=== PATIENT | female | born 1960 | race Caucasian/White ===

== ENCOUNTER → 2025-02-07 07:49 | Outpatient (REF) | payer OTHER, SELFPAY | LOC: RAD 07:49 | PROVIDERS: ATTENDING PHYSICIAN Nurse Practitioner Adult Health; FAMILY PHYSICIAN Nurse Practitioner | DX: M85.89 Other specified disorders of bone density and structure, multiple sites (principal) | CPT/HCPCS: 77080 ==

== ENCOUNTER 2025-04-11 13:15 | Observation (INO) | payer OTHER, SELFPAY ==
[2025-04-11] VITALS (11 sets, daily range): BP systolic 120–146; BP diastolic 73–98
--- NOTE | 2025-04-11 11:01 | CON.NEURO ---
Addendum entered and electronically signed by Markel Gonzales MD 04/11/25 14:39:
Studies reviewed.
I have personally examined the patient. I reviewed and agree with the INTERNET SALES MANAGER's Note.
My addenda:
Awake, alert, interactive. No acute distress.
Speech intact.
Follows 2-step requests w/o difficulty. No tremor.
Extra-ocular movements grossly intact.
Facial movements full and symmetric. Hearing intact to normal conversational volume.
Normal UE movements bilaterally.
Neck: full ROM.
Chest: no dyspnea
Heart: no JVD
Ext: (-) Clubbing, (-) Cyanosis, (-) Edema
IMPRESSIONS/RECOMMENDATIONS:
Abrupt onset of ataxia
Unclear etiology at this time. There is the possibility of a posterior acute ischemic stroke producing symptoms. Differential diagnosis includes toxic metabolic abnormality
Check alcohol level
Check urine drug screen
Provide thiamine
Check MRI of brain if the above testing is unremarkable
Provide patient with aspirin 81 mg until clarity regarding absence or presence of vascular abnormalities
D/W patient
All questions answered.
Will continue to follow pending results.
Original Note:
Documented by User: Mikayla Bhatti NP 04/11/25 14:10
Neuro Assessment/Plan
Assessment
Patient is a 65-year-old female with a past medical history of hypertension, history of alcohol abuse, chronic pain syndrome, anxiety and depression who presents to [facility] on 04/11/2025 for evaluation of dysarthria and ataxia.
Head CT: No acute intracranial abnormality. ASPECT score: 10
Head and neck CTA:
1. Negative for major branch vessel occlusion, flow-limiting stenosis, dissection, or aneurysm formation.
2. Chronic left-sided paranasal sinusitis.
Brain MRI: pending
Labs: Hgb A1C 4.9, LDL 90, Vitamin B12 591
Plan
Impression: abrupt onset of ataxia and dysarthria with resolving symptoms likely due to TIA
-check brain MRI without contrast to evaluate for CVA
-check blood work to look for metabolic disturbances
-start thiamine
-start aspirin 81 mg daily
-LDL 90 with goal <70 start atorvastatin 40 mg nightly
-stroke education material to be provided
-neurochecks and NIHSS per unit guidelines
All questions encouraged and answered, plan of care discussed with Dr. Gonzales, nurse and patient
Consultation
Order
Date of Consultation: 04/11/25
Requesting Provider: hospitalist/Dr. Huang
Reason for Consult: stroke alert
Subjective/Objective
Subjective Data
Date of Service: April 11, 2025
Patient is a 65-year-old female with a past medical history of hypertension, history of alcohol abuse, chronic pain syndrome, anxiety and depression who presents to [facility] on 04/11/2025 for evaluation of dysarthria and ataxia. Patient reports that
she was in her normal state of health before bed last night at 2130. She says she woke up this morning at about 5:30 AM and noted that she felt very clumsy and 'drunk.' She says that she felt unsteady on her feet and was dropping things, etc. She
says that she noticed that she was having some trouble getting words out. Went to her PCP first and was noted to have ataxia to RUJuan and FRANCISCA and referred her to the ER. She says that symptoms seem to be improving generally but have not resolved�her
main complaint presently is that she feels very unsteady. She denies having headache, dizziness or neck pain. She denies any weakness or numbness/tingling in the legs. She denies any change in her vision. Denies issues with chewing or swallowing.
Denies issues with bowel/bladder. She denies any other acute complaints. She denies having had similar symptoms in the past. She is not on any blood thinners. On arrival to ED she was a stroke alert, NIHSS 1 for mild aphasia. Currently NIHSS 0.
Head CT showed no acute intracranial abnormality. Head and neck CTA showed no major branch vessel occlusion, flow-limiting stenosis, dissection, or aneurysm formation. She was not a TNK candidate given low NIH score and greater hurley 4.5 hours from
onset of symptoms.
Objective Data
Vital Signs
Temp Pulse Resp BP Pulse Ox
98.7 F 82 16 140/84 97
04/11/25 10:30 04/11/25 10:30 04/11/25 10:30 04/11/25 10:30 04/11/25 10:30
Patient Allergies
No Known Allergies Allergy (Verified 04/11/25 10:34)
CVA Assessment
Onset of Stroke Symptoms
Onset of symptoms known: No
Date of onset of symptoms: 04/11/25
Time of onset of symptoms: 05:30
Time pt last seen normal is known: No
Date last time pt seen normal: 04/10/25
Time last time pt seen normal: 21:30
NIH Stroke Score
Level of Consciousness: 0 - Alert
LOC Questions: 0-Answers both correctly
LOC Commands: 0-Performs both correctly
Best Horizontal Gaze: 0-Normal
Visual Peacock: 0=Normal, no visual loss
Facial Palsy: 0=Normal, symmetrical
Motor - Right Arm: 0=No drift 10 seconds
Motor - Left Arm: 0=No drift 10 seconds
Motor - Right Le-No drift 5 seconds
Motor - Left Le-No drift 5 seconds
Limb Ataxia: 0-Absent
Sensation: 0-Normal
Best Language: 0-No aphasia
Dysarthria: 0-Normal
Extinction and Inattention: 0-No abnormality
NIH Total Score:: 0
Tenecteplase Contraindications
Inclusion and Exclusion criteria reviewed: Yes
IAT Contraindications: >6 hrs from onset/last seen normal, NIHSS < 6 and Imaging doesn't show large vessel occlusion as cause of stroke
Modified Musselshell Score (MRS)
-
Modified Musselshell Scale (mRS): No symptoms
Score: 0
Medications
-
Home Medications
�Medication �Instructions �Recorded
amlodipine 5 mg tablet (Norvasc) 5 mg PO QPM 08/09/22
buprenorphine HCl 450 mcg buccal 450 mcg buccal Q12H 08/09/22
film (Belbuca)
fluoxetine 40 mg capsule (Prozac) 80 mg PO DAILY 08/09/22
hydrocodone 5 mg-acetaminophen 325 1 tab PO Q6H PRN pain #7 tabs 08/09/22
mg tablet
levofloxacin 500 mg tablet 500 mg PO DAILY 7 days #7 tabs 08/09/22
metronidazole 500 mg tablet 500 mg PO TID #21 tabs 08/09/22
ondansetron 4 mg disintegrating 4 mg PO Q8H PRN nausea/vomiting 4 08/09/22
tablet days #10 tabs
Past History
Past History
ED Past Medical History: HTN, Psychiatric (Depression) and Other (Chronic neck and back pain, one episode diverticulitis in the past)
ED Past Surgical History: Gynecological (, D&C), Orthopedic (Bilateral shoulder surgeries.) and Other (Epidural steroid injections to cervical region)
Family/Social History
Tobacco: Former smoker
Alcohol: None
Drug: None
Personal:
Living: with family
Family History: Hypertension

Documented by User: Markel Gonzales MD 04/11/25 14:33
CVA Assessment
NIH Stroke Score
NIH Total Score:: 0
Modified Musselshell Score (MRS)
-
Score: 0
[2025-04-11 11:02] LABS: Hematocrit 34.6 % (37.0-47.0); Hemoglobin 11.8 g/dL (12.0-16.0); Mean Corp Hgb Conc. 34.1 g/dL (33.0-37.0); Mean Corpuscular Volume 83.4 fL (81.0-99.0); Nucleated Red Blood Cells % 0 %; Platelet Count 306 10^3/uL (130-400); Red Cell Dist. Width 13.1 % (11.5-14.5)
--- NOTE | 2025-04-11 11:13 | ED.CVA ---
History of Present Illness
General
Chief Complaint: CVA/TIA Symptoms
Source: patient and other (Friend)
Exam Limitations: none
Time Seen by Provider: 04/11/25 10:44
Nursing documentation reviewed up to this point in time: agreed with
Onset of Stroke Symptoms
Onset of symptoms known: Yes
Date of onset of symptoms: 04/11/25
History of Present Illness
History of Present Illness:
65-year-old female with a past medical history of hypertension who presents to the emergency department for evaluation of speech issues and clumsiness. Patient reports that she was in her normal state of health before bed last night. She says she
woke up this morning at about 5:30 AM and noted that she felt very clumsy. She says that she felt unsteady on her feet and was dropping things, etc. She says that she noticed that she was having some trouble getting words out. Called her primary
doctor who referred her to the ER. She says that symptoms seem to be improving generally but have not resolved�her main complaint presently is that she feels very unsteady. She denies having headache or neck pain. She denies any weakness or
numbness in the legs. She denies any change in her vision. She denies any other acute complaints. She denies having had similar symptoms in the past. She is not on any blood thinners.
Past History
Past History
ED Past Medical History: HTN, Psychiatric (Depression) and Other (Chronic neck and back pain, one episode diverticulitis in the past)
ED Past Surgical History: Gynecological (, D&C), Orthopedic (Bilateral shoulder surgeries.) and Other (Epidural steroid injections to cervical region)
Social History
Tobacco: Former smoker
Alcohol: None
Drug: None
Personal:
Living: with family
Family History
Family History: Hypertension
Review of Systems
Review of Systems
All Other Systems: ROS reviewed and negative except as documented in HPI and ROS
Constitutional: Denies fever
Respiratory: Denies trouble breathing
Cardiac: Denies chest pain or palpitations
ABD/GI: Denies abdominal pain, nausea or vomiting
: Denies flank pain
Musculoskeletal: Denies neck pain or back pain
Neurological: Reports dizzy and other (Clumsiness, speech issues); Denies headache, weakness or numbness
Phy Exam
Physical Exam
Physical Exam:
General: Awake, alert, oriented x3; no acute distress
Head: Normocephalic, atraumatic
Eyes: Conjunctiva normal, EOMI, pupils equal round reactive to light bilaterally
Throat: Airway intact, handling secretions
Neck: Trachea midline, supple without meningismus
Lungs: Clear to auscultation bilaterally, no wheezing, rales, rhonchi
Heart: Regular rate and rhythm, no murmurs, gallops, or rubs
Neuro: Cranial nerves intact 2 through 12, no dysarthria noted, perhaps very mild expressive aphasia (no loss of fluency but she does have to pause from time to time to find words), no limb ataxia on [id number] but she does have ataxia on
ambulation with abnormal Romberg and cannot tolerate even 1 step heel-to-toe walk; motor and sensory intact proximally distally in the upper and lower extremities
Extremities: No edema in extremities, equal pulses in all extremities
Scores
NIH Stroke Score
Level of Consciousness: 0 - Alert
LOC Questions: 0-Answers both correctly
LOC Commands: 0-Performs both correctly
Best Horizontal Gaze: 0-Normal
Visual Peacock: 0=Normal, no visual loss
Facial Palsy: 0=Normal, symmetrical
Motor - Right Arm: 0=No drift 10 seconds
Motor - Left Arm: 0=No drift 10 seconds
Motor - Right Le-No drift 5 seconds
Motor - Left Le-No drift 5 seconds
Limb Ataxia: 0-Absent
Sensation: 0-Normal
Best Language: 1-Mild aphasia
Dysarthria: 0-Normal
Extinction and Inattention: 0-No abnormality
NIH Total Score:: 1
Thrombolytic Contraindication
Inclusion and Exclusion criteria reviewed: Yes
Reasons for NON-Tx with Thrombolytics ABSOLUTE Exclusions: Greater than 4.5 hrs from onset of sxs
Heart Failure Risk
Heart Failure Risk Score: Not Applicable
Heart Score for Chest Pain Patients
STEMI patient?: Not applicable
Withdrawal Assessment of Alcohol
Withdrawal Assessment Completed?: Not applicable
Course
Orders/Labs/Results
Orders:
Orders
04/11/25 10:53
Electrocardiogram (*1) Stat
Reason for Study: Other
Other Reason for Exam: neuro symptoms
CT BRAIN PERF STROKE ALERT Urgent
Comment:
Reason For Exam: ataxia, expressive aphasia
CT HEAD STROKE ALERT W/o Cont Urgent
Comment:
Reason For Exam: ataxia, expressive aphasia
CT HEAD/NECK ANG STROKE ALERT Urgent
Comment:
Reason For Exam: ataxia, expressive aphasia
NEUROLOGY CONSULT Urgent
Consulting Provider: Markel Gonzales
Was physician already notified: Yes
Bedside Glucose- Treatment ONCE
Cardiac Monitoring- Treatment ONCE
EKG- Treatment ONCE
IV Insert/Care/Rem.- Treatment PRN
Pulse Ox/cont/shift [RESP] Stat
Quantity: 1
04/11/25 10:58
Alcohol Urgent
Cardiovascular Evaluation Urgent
Complete Blood Count/With Diff Urgent
Comprehensive Metabolic Panel Urgent
Free T4 Urgent
Comment: ADD ON
Glycohemoglobin (HgbA1c) Urgent
TSH Urgent
Comment: ADD ON
Vitamin B12 Urgent
Comment: ADD ON
04/11/25 11:07
Add On- LAB Routine
Tests Added?: lipid panel, hgb A1C, TSH, free t4, B12
04/11/25 11:36
Drug Screen, Urine [Urine Drug Abuse Screen] Urgent
Date Specimen was Collected: 04/11/25
Time Specimen was Collected: 11:22
Fentanyl, Urine Urgent
04/11/25 11:56
MR Brain Without Contrast Routine
Comment:
Reason For Exam: Ataxia,? Stroke
Recent pill cam endoscopy?: No
Lorazepam [Ativan] 1 mg PO ONCE ONE
04/11/25 12:27
Aspirin 325 mg PO NOW STA
04/11/25 12:59
Admit/Transfer Patient As Directed
Co-Sign Provider:
Level of Care: Observation services
Assign to:: Telemetry
Physician / Group: luis alberto hunter
Diagnosis: speech diff / ataxia concern tia/cva
Reason for Telemetry: CVA/TIA
Date to Stop Telemetry: 04/14/25
Time to Stop Telemetry: 11:00
Code Status As Directed
Resuscitation Status: Full Code
04/11/25 13:01
PRN Pain Medication Management As Directed
May give lesser potent ordered pain med per pt: Yes
preference::
Protocol:: Medication orders for pain may be administered in a
manner that supports deferring to patient preference
when the pt is:
- Requesting an ordered lesser potent pain medication.
Least to most potent pain medications are defined
as: acetaminophen < NSAID < tramadol < opioids
(morphine, oxycodone, hydromorphone).
- Requesting a lesser dose of the same medication IF
ORDERED.
- Requesting a less intrusive route of administration
if both routes are prescribed by the provider (PO <
IV).
04/14/25 11:00
DC Protocol for Telemetry ONCE
Abnormal Lab Results
04/11/25 04/11/25
10:58 11:36
WBC 11.1 H 10^3/uL
(4.8-10.8)
RBC 4.15 L 10^6/uL
(4.20-5.40)
Hgb 11.8 L g/dL
(12.0-16.0)
Hct 34.6 L %
(37.0-47.0)
Abs Immat Gran (auto) 0.1 H 10^3/uL
(0-0.05)
Absolute Neuts (auto) 8.1 H 10^3/uL
(1.4-6.5)
Absolute Monos (auto) 0.7 H 10^3/uL
(0.1-0.6)
Lymphocytes % 17.2 L %
(20.5-51.1)
Ur Tricyclics Screen Positive H
(Negative)
U Benzodiazepines Scrn Positive H
(Negative)
U Marijuana (THC) Screen Positive H
(Negative)
04/11/25 10:58
04/11/25 10:58
Vital Signs
Initial and Last Documented VS:
Initial Vital Signs
Temp Pulse Resp BP Pulse Ox
37.1 C 82 16 140/84 97
04/11/25 10:30 04/11/25 10:30 04/11/25 10:30 04/11/25 10:30 04/11/25 10:30
Last Documented Vital Signs
Temp Pulse Resp BP Pulse Ox
37.1 C 73 7 123/73 97
04/11/25 10:30 04/11/25 15:45 04/11/25 15:45 04/11/25 15:00 04/11/25 14:15
MDM/Problems Addressed
Differential Diagnosis Includes:
CVA, TIA, panic attack/anxiety, polypharmacy/drug or alcohol use
MDM/Problems Addressed:
65-year-old female presents with clumsiness and speech difficulties that started this morning when she woke up at 5:30 AM. She was in her normal state of health last night. She says symptoms are improving generally but have not resolved. Vitals
and exam as above. Stroke alert activated after my initial assessment. NIH stroke scale 1. Discussed with neurology for assessment. Will send for a CT head, CT perfusion, CTA head and neck. Usual labs sent off and will check EKG. Monitor very
closely reassess after the above
Initial CT called back by radiology: Negative for any acute abnormality. Neurology assessing.
CTA no LVO or other acute abnormalities. Labs reviewed: CBC shows marginal anemia, marginal leukocytosis of unclear acute clinical significance. Chemistry no clinically significant abnormalities. Discussed with neurology will plan for likely MRI
to rule out stroke. Will treat with aspirin for now. Discussed with hospitalist for admission.
*Radiology
Radiology exam reviewed: radiology read reviewed
*Pulse Oximetry
SaO2: 97
Oxygen Mode of Delivery: Room air
Patient hypoxic: no (97%)
*Critical Care Note
Total Time (30-74mins, 75-104mins- exclusive of procedures): Not Applicable
Data Reviewed
Review of Other/Old Records Reveals: Records
Source: patient, records and other (Friend)
Patient Management
Discussion with other providers: Hospitalist (Discussed with hospitalist), PCP (Discussed with PCP who called ahead), Associate Dentist (Discussed with neurology) and Radiologist (Discussed with radiology)
Escalation/DeEscalation of care consider admission/obs:
Admission indicated
ED Attending Note
-
Portions of this chart may have been created with voice recognition software.� Occasional wrong word or��sound alike� substitutions may have occurred due to the inherent limitations of voice recognition software.
Discharge Plan
Departure
Patient Disposition: Admit
Date of Disposition: 04/11/25
Time of Disposition: 12:07
Admit to doctor: Dylan
Presentation/result/management discussed w/ accepting MD/DO: Hospitalist
Discharge Problem:
Acute CVA (cerebrovascular accident)
Interventions
Interventions:
*General Assessment Last Done: 04/11/25 11:44
ED- Pulmonary Assessment Last Done: 04/11/25 11:44
ED- Neurological Assessment Last Done: 04/11/25 11:44
ED- Cardiac Assessment Last Done: 04/11/25 11:44
ED Swallowing Screen Last Done: 04/11/25 11:44
[2025-04-11 11:32] LABS: ALT (SGPT) 14 U/L (0-35); AST (SGOT) 22 U/L (14-36); Albumin 4.1 g/dl (3.5-5.0); Alkaline Phosphatase 92 U/L (38-126); Blood Urea Nitrogen 16 mg/dl (7-17); Calcium 9.2 mg/dl (8.4-10.2); Carbon Dioxide 23 mmol/L (22-30); Chloride 107 mmol/L (98-107); Glucose 92 mg/dl (70-99); HDL Cholesterol 63 mg/dl; LDL Cholesterol, Calculated 90 mg/dl; Potassium 3.6 mmol/L (3.5-5.1); Sodium 138 mmol/L (135-145); Total Protein 6.9 g/dl (6.3-8.2); Very Low Density Lipoprotein 17 mg/dl (0-30); eGFR > 60.00
[2025-04-11 12:03] LABS: TSH 2.70 uIU/ml (0.47-4.68)
[2025-04-11 12:22] LABS: Vitamin B12 591 pg/ml (239-931)
--- NOTE | 2025-04-11 12:32 | W.PN.UPDATE ---
Update Note
Progress Note Update
This note serves as an addendum to the H&P by concrete sculptor MARISSA�
Maria Elena Bethany
HPI
65F R hand dominant HX HTN, Chronic neck and back pain, Depression, marijuana gummy HS for insomnia seen at ER:
- evaluation of speech issues and clumsiness.
- reports that she was in her normal state of health before bed last night.
- she woke up this morning at about 5:30 AM and noted that she felt very clumsy.
- she felt unsteady on her feet and was dropping things, etc.
- she noticed that she was having some trouble getting words out.
Called her primary doctor who referred her to the ER.
- symptoms seem to be improving generally but have not resolved
- complaint presently is that she feels very unsteady.
ROS:
She denies having headache or neck pain. She denies any weakness or numbness in the legs. She denies any change in her vision. She denies any other acute complaints. She denies having had similar symptoms in the past.
She is not on any blood thinners.
Vital Signs
Temp Pulse Resp BP Pulse Ox
98.7 F 92 11 144/87 97
04/11/25 10:30 04/11/25 11:37 04/11/25 11:37 04/11/25 11:25 04/11/25 11:37
PE
Gen:No toxic
HEENT: symmetric face and expression, nl speech , name 5fruits without difficulty
Neck: supple
Lungs: CTA
Cor: RRR
Abdomen:�Benign exam
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
MS:no edema
Psych:nl mooed
Relevant Data
Abnormal Lab Results
04/11/25 04/11/25
10:58 11:36
WBC 11.1 H
RBC 4.15 L
Hgb 11.8 L
Hct 34.6 L
Abs Immat Gran (auto) 0.1 H
Absolute Neuts (auto) 8.1 H
Absolute Monos (auto) 0.7 H
Lymphocytes % 17.2 L
Ur Tricyclics Screen Positive H
U Benzodiazepines Scrn Positive H
U Marijuana (THC) Screen Positive H
CT HEAD/NECK ANG STROKE ALERT
1. Negative for major branch vessel occlusion, flow-limiting stenosis, dissection, or aneurysm formation.
2. Chronic left-sided paranasal sinusitis.
CT HEAD STROKE ALERT W/o Cont
- No acute intracranial abnormality.
CT BRAIN PERF STROKE ALERT;
ASSESSMENT & PLAN
Pending Rx reconciliation
Woke yo with abn speech, clumsy and unsteady - overall improved but still unsteady
DDX: r/o TIA/CVA vs overuse of prescription RO[employer]LL[employer]OT MIX Meds
Sxs improving but not resolved.
NEG HCT/CTA nothing acute
R hand dominant
Off note: last night she took Gabapentin 600mh instead of 300mg
- ASA
- Brain MRI
- PT/OT
- Neuro consulted
POS THC in UDS
- reports Marijuana gummy HS to sleep
Bn HTN
- stable
- on RODEO RIDER Amlodipine 10 mg daily
Depression
Anxiety
- stable
- RODEO RIDER Fluoxetine 40mg daily
- RODEO RIDER Lorazepam 0.5mg daily
Chr neck and LBP
- on RODEO RIDER Cyclobenzaprine PRN, Gabapentin 300-600mg HS
- Percocet PRN BID
DVT Px: SCD
Full code
OBS TLM
--- NOTE | 2025-04-11 12:36 | HPS.HSE ---
Family Physician
-
Family Physician: SILVIA Magana
Chief Complaint
-
Ataxia, slurred speech
History of Present Illness
65-year-old female who reportedly went to bed last night and felt fine however upon wakening this morning at 530 she reports feeling unsteady on her feet and dropping things. She was also noted to have trouble getting out her words. She currently
only complains of feeling unsteady with walking her speech has currently resolved. She reports symptoms had lasted about 3 to 4 hours. She reports using marijuana gummy every night to sleep she denies headache, blurred vision, sore throat, fever,
chills, chest pain, palpitations, cough, shortness of breath, abdominal pain, nausea, vomiting, diarrhea, urinary symptoms. She has past medical history of hypertension, former smoker, depression/anxiety, chronic neck and back pain on oral opiates,
diverticulitis
Medical History
Past Medical History
Past Medical History: Reports Other
Additional Past Medical History:
HYpertension
former smoker
depression/anxiety
chronic neck and back pain on chronic oral opiates
diverticulitis
Neuropathy
Past Surgical History: Reports Other
Additional Past Surgical History:
section
D&C
Bilateral shoulder surgery
Epidural injections to cervical spine
Social History
Tobacco: Former Smoker (Quit 40 years ago)
Alcohol: None
Drug: None
Personal: Single
Living: Alone
Employment: Employed
Family History
Family History: Other (Mother history CA, HTN age 84, father history of dementia, HTN, DM 2 )
Allergies / Home Medications
Allergies reflects when Allergies were last updated in [facility].
Home Medications with original date entered in [facility]
Allergy/Medication List:
Allergies
Allergy/AdvReac Type Severity Reaction Status Date / Time
No Known Allergies Allergy Verified 04/11/25 10:34
Home Medications
buprenorphine HCl 450 mcg buccal film (Belbuca) 450 mcg buccal Q12H 08/09/22
amlodipine 10 mg tablet (Norvasc) 10 mg PO QPM 04/11/25
cyanocobalamin (vitamin B-12) 1,000 mcg tablet 1,000 mcg PO DAILY 04/11/25
fluoxetine 40 mg capsule 80 mg PO QPM 04/11/25
gabapentin 300 mg capsule 600 mg PO HS 04/11/25
ibuprofen 400 mg tablet 400 mg PO Q6HPRN PRN mild pain 04/11/25
vitamins A,C,V-cros-upvdem 2,148 mcg-113 mg-45 mg-17.4 mg tablet (PreserVision AREDS) 2 tab PO QPM 04/11/25
Review of Systems
-
History Source: Patient and Family (Friend Alda at bedside)
A 12 point ROS was completed and negative except as noted: Yes
Constitutional: Denies Fever or Chills
EENT: Denies Sore Throat or Runny Nose
Respiratory: Denies Cough or Trouble Breathing
Cardiac: Denies Chest Pain, Diaphoresis, Palpitations or Syncope
Abdomen/GI: Denies Abdominal Pain, Nausea, Vomiting, Diarrhea, Constipated, Bloody Stools or Black Stools
: Denies Dysuria, Frequency, Flank Pain, Incontinence, Difficulty Voiding or Urgency
Musculoskeletal: Denies Joint Pain or Edema
Skin: Denies Itching or Rash
Neurological: Reports Dizzy and Other (Reported ataxia with walking); Denies Headache, Weakness or Numbness
Endocrine: Reports No Symptoms
Hematologic/Lymphatic: Reports No Symptoms
Psych: Reports Calm
Physical Exam
Vital Signs
Vital Signs
Temp Pulse Resp BP Pulse Ox
98.7 F 92 11 144/87 97
04/11/25 10:30 04/11/25 11:37 04/11/25 11:37 04/11/25 11:25 04/11/25 11:37
Physical Exam
General: Comfortable and Conversant; No Fever, Chills or Sweats
HEENT: NormoCephalic, Anicteric, Moist mucous membranes, PERRLA, Joslin Conjunctivae and No Ptosis
Respiratory: Clear; No Wheezes, Rales or Rhonchi
Cardiac: S1/S2 and Regular Rhythm; No Murmur, Rub, Gallop or Peripheral Edema
Breast: Deferred by me
GI: Soft, Non Tender, Non Distended, Normal Bowel Sounds and No Hepatosplenomegaly
Rectal: Deferred by Provider
Genito-urinary: Deferred by me
Musculoskeletal: No Clubbing, No Cyanosis and No Edema
Skin: Warm and Dry; No Rash or Jaundice
Neuro: AO x 3, No Motor Deficits, Nonfocal/grossly intact, Cranial Nerves Intact and No Sensory Deficits; No Slurred Speech, Facial Droop, Tremors or Sedated
Psych: Calm
Laboratory Results
-
04/11/25 10:58
04/11/25 10:58
Laboratory Results
Total Bilirubin 0.5 mg/dl (0.2-1.3) 04/11/25 10:58
AST 22 U/L (14-36) 04/11/25 10:58
ALT 14 U/L (0-35) 04/11/25 10:58
Alkaline Phosphatase 92 U/L (38-126) 04/11/25 10:58
Data Reviewed
-
CT Scan: Report Reviewed by me
Lab Data: Labs Reviewed by me
Impression/Plan
-
Impression/plan:
Observation telemetry
#Slurred speech with ataxia concern for CVA/TIA
UDS positive benzos, marijuana, tricyclic's
- Consult neurology
- Aspirin 325 mg now then 81 mg daily
- MRI brain in a.m.
- Check lipid profile, HgbA1c
- PT/OT/speech
Head and neck CTA:
1. No acute intracranial abnormality
2. Negative for major branch vessel occlusion, stenosis, dissection or aneurysm formation, chronic left-sided paranasal sinusitis
EKG: NSR 79 bpm, QTc 497 MS no significant change from June 2017
#Insomnia
Patient uses marijuana gummy at night
#HYpertension
BP 144/87
- Continue amlodipine 5 mg every afternoon
#Former smoker
Quit 40 years ago
#Depression
Continue Prozac 40 mg daily
#chronic neck and back pain with chronic neuropathy on chronic pain meds
History of cervical injections
- Continue Belbuca twice daily
#Diverticulitis in past
Glaucoma
Continue PreserVision
DVT prophylaxis
SCDs
Full code
[2025-04-11] MEDS: ASPIRIN 325 MG PO (13:10)
[2025-04-11 13:14] LABS: Glycohemoglobin (HgbA1c) 4.9 % (4.0-5.6)
--- NOTE | 2025-04-11 14:44 | CM ---
CM reviewed chart and met with pt bedside in ED. Pt lives alone in 2 story home, [address]. Has first floor half BA, full flight of steps to second floor BR/full BA. 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 Confirms prescription coverage.
OBS form reviewed and signed.
No hx VN/SNF.
PCP: Maria Elena Rankin
Pharmacy: [facility] or [facility] in [place]
Anticipate discharge home, no needs. CM will continue to follow for ay discharge planning needs.
[2025-04-11] MEDS: NORVASC 10 MG PO (20:37)
[2025-04-11] MEDS: OCUVITE SOFTGEL 2 CAP PO (20:39)
[2025-04-11] MEDS: PROZAC 80 MG PO (20:41)
[2025-04-11] MEDS: BELBUCA 300 MCG BUCCAL (22:48)
[2025-04-11] MEDS: NEURONTIN 600 MG PO (22:48)
[2025-04-12] MEDS: MELATONIN 5 MG PO (00:26)
[2025-04-12 03:00] VITALS: BP 116/74
--- NOTE | 2025-04-12 04:06 | PTCARENOTE ---
Pt arrived to unit via stretcher. Pt walked from stretcher to bed. Pt oriented to room. Pt AAOx3, VSS. Pt's daughter present at beside. Call echevarria within reach, plan of care ongoing.
[2025-04-12 06:57] LABS: Hematocrit 33.3 % (37.0-47.0); Hemoglobin 11.4 g/dL (12.0-16.0); Mean Corp Hgb Conc. 34.2 g/dL (33.0-37.0); Mean Corpuscular Volume 83.9 fL (81.0-99.0); Nucleated Red Blood Cells % 0 %; Platelet Count 247 10^3/uL (130-400); Red Cell Dist. Width 13.2 % (11.5-14.5)
[2025-04-12 07:00] VITALS: BP 147/83
[2025-04-12 07:15] LABS: Blood Urea Nitrogen 9 mg/dl (7-17); Calcium 8.9 mg/dl (8.4-10.2); Carbon Dioxide 27 mmol/L (22-30); Chloride 108 mmol/L (98-107); Glucose 81 mg/dl (70-99); Potassium 3.6 mmol/L (3.5-5.1); Sodium 141 mmol/L (135-145); eGFR > 60.00
[2025-04-12] MEDS: BELBUCA 300 MCG BUCCAL (07:25)
[2025-04-12] MEDS: VITAMIN B1 100 MG PO (07:25)
[2025-04-12] MEDS: VITAMIN B-12 1000 MCG PO (07:25)
[2025-04-12] MEDS: LOW STRENGTH ASPIRIN 81 MG PO (07:25)
--- NOTE | 2025-04-12 09:00 | W.PN.NEURO.1 ---
Addendum entered and electronically signed by Markel Gonzales MD 04/12/25 10:38:
Studies reviewed.
I have personally examined the patient. I reviewed and agree with the DESTINATION SPECIALIST's Note.
My addenda:
Awake, alert, interactive. No acute distress.
Speech intact.
No tremor.
Extra-ocular movements grossly intact.
Facial movements full and symmetric. Hearing intact to normal conversational volume.
Normal UE movements bilaterally.
Neck: full ROM.
Chest: no dyspnea
Heart: no JVD
Ext: (-) Clubbing, (-) Cyanosis, (-) Edema
IMPRESSIONS/RECOMMENDATIONS:
Abrupt onset of ataxia and dysarthria with normal MRI of brain, normal CTA, unremarkable blood work, abnormal UDS. Possible TIA, more likely toxic metabolic encephalopathy
continue Thiamine x 7 days for completeness
continue aspirin x 6 months, then discontinue 09/2025
continue Atorvastatin 40 mg daily due to mildly LDL > 70
D/W patient
Will continue to follow as outpatient.
Original Note:
Documented by User: Mikayla Bhatti NP 04/12/25 09:20
Today's Communication / Plan
-
-continue thiamine
-continue aspirin 81 mg daily for 6 months
-LDL 90 with goal <70 continue atorvastatin 40 mg nightly
-follow up with neurology outpatient
Neuro Assessment/Plan
Assessment
Patient is a 65-year-old female with a past medical history of hypertension, history of alcohol abuse, chronic pain syndrome, anxiety and depression who presents to [facility] on 04/11/2025 for evaluation of dysarthria and ataxia.
Head CT: No acute intracranial abnormality. ASPECT score: 10
Head and neck CTA:
1. Negative for major branch vessel occlusion, flow-limiting stenosis, dissection, or aneurysm formation.
2. Chronic left-sided paranasal sinusitis.
Brain MRI: No acute intracranial abnormality.
Labs: Hgb A1C 4.9, LDL 90, Vitamin B12 591
Plan
Impression: abrupt onset of ataxia and dysarthria with resolving symptoms likely due to TIA vs metabolic disturbace
-continue thiamine
-continue aspirin 81 mg daily for 6 months
-LDL 90 with goal <70 continue atorvastatin 40 mg nightly
-follow up with neurology outpatient
All questions encouraged and answered, plan of care discussed with Dr. Gonzales, Dr. Mustafa, nurse and patient
Subjective/Objective
Subjective Data
Date of Service: April 12, 2025
No acute events overnight. Symptoms completely resolved by 4-5pm yesterday.
Objective Data
Vital Signs
Temp Pulse Resp BP Pulse Ox
98.4 F 83 18 147/83 99
04/12/25 07:00 04/12/25 07:00 04/12/25 07:00 04/12/25 07:00 04/12/25 07:00
Lab Results
04/12/25 06:39
04/12/25 06:39
Sodium 141 mmol/L (135-145) 04/12/25 06:39
Potassium 3.6 mmol/L (3.5-5.1) 04/12/25 06:39
BUN 9 mg/dl (7-17) 04/12/25 06:39
Glucose 81 mg/dl (70-99) 04/12/25 06:39
Calcium 8.9 mg/dl (8.4-10.2) 04/12/25 06:39
LDL Cholesterol, Calc 90 mg/dl 04/11/25 10:58
Vitamin B12 591 pg/ml (239-931) 04/11/25 10:58
Ur Buprenorphine Cancelled 04/11/25 11:36
Ur Buprenorphine Negative (Negative) 04/11/25 11:36
Patient Allergies
No Known Allergies Allergy (Verified 04/11/25 10:34)
Physical Exam
-
General: No Apparent Distress and Comfortable
HEENT: Normocephalic, Atraumatic and Anicteric
Neck: Full Range of Motion
Respiratory: No Dyspnea
Cardiac: No JVD
GI: Non-distended
Extremities: No Clubbing, No Cyanosis and No Edema
Psych: Unremarkable
Extended Neurological Exam
Mood & Affect: Mood Unremarkable
Attention Span & Concentration: Awake, Alert and Interactive
Memory: Unremarkable
Speech: Quality Unremarkable, Quantity Unremarkable and Rate of Production Unremarkable
Cranial Nerve VII: Facial Symmetry: Normal Facial Symmetry
Muscle Strength, Overall: Full Throughout
Coordination: Reaches for Objects without Difficulty
Data Reviewed
-
CT-A: Report Reviewed and Image Reviewed
CT Head: Report Reviewed and Image Reviewed
MRI Head: Report Reviewed and Image Reviewed
Labs: Report Reviewed
Lipid Profile: Report Reviewed
HgbA1C: Report Reviewed
Reviewed with: Physician and Patient
Old Records: Summarized

Documented by User: Markel Gonzales MD 04/12/25 10:27
Past History
Past History
ED Past Medical History: HTN, Psychiatric (Depression) and Other (Chronic neck and back pain, one episode diverticulitis in the past)
ED Past Surgical History: Gynecological (, D&C), Orthopedic (Bilateral shoulder surgeries.) and Other (Epidural steroid injections to cervical region)
Social History
Tobacco: Former smoker
Alcohol: None
Drug: None
Personal:
Living: with family
Family History
Family History: Hypertension
Medications
-
Medications:
Generic Name Dose Route Start Last Admin
Trade Name Freq PRN Reason Stop Dose Admin
Acetaminophen 650 mg 04/11/25 20:07
Acetaminophen 325 Mg Tablet PO 05/09/25 20:06
Q4HPRN PRN
mild pain/TIRADO/temp> 100.4F
Amlodipine Besylate 10 mg 04/11/25 20:07 04/11/25 20:37
Amlodipine 10 Mg Tablet PO 05/09/25 20:06 10 mg
QPM [place] Administration
Aspirin 81 mg 04/12/25 08:00 04/12/25 07:25
Aspirin 81 Mg Chewable Tablet PO 05/10/25 07:59 81 mg
DAILY [place] Administration
Atorvastatin Calcium 40 mg 04/11/25 18:00 04/11/25 20:26
Atorvastatin (Lipitor) 40 Mg Tablet PO 05/09/25 17:59 Not Given
QPM [place]
Buprenorphine HCl 300 mcg 04/11/25 22:00 04/12/25 07:25
Buprenorphine 300 Mcg Film (Belbuca) BUCCAL 04/25/25 21:59 300 mcg
TID [place] Administration
Cyanocobalamin 1,000 mcg 04/12/25 08:00 04/12/25 07:25
Cyanocobalamin 1,000 Mcg Tablet PO 05/10/25 07:59 1,000 mcg
DAILY [place] Administration
Fluoxetine HCl 80 mg 04/11/25 21:00 04/11/25 20:41
Fluoxetine 20 Mg Capsule PO 05/09/25 20:59 80 mg
QPM [place] Administration
Gabapentin 600 mg 04/11/25 22:00 04/11/25 22:48
Gabapentin 300 Mg Capsule PO 05/09/25 21:59 600 mg
HS [place] Administration
Melatonin 5 mg 04/12/25 00:15 04/12/25 00:26
Melatonin 5 Mg Tablet PO 05/10/25 00:14 5 mg
HS [place] Administration
Sodium Chloride 0 flush 04/11/25 21:00
Sodium Chloride 0.9% (Flush) Syringe IV 05/09/25 20:59
PER PROTOCOL [place]
Thiamine HCl 100 mg 04/12/25 08:00 04/12/25 07:25
Thiamine 100 Mg Tablet PO 05/10/25 07:59 100 mg
DAILY [place] Administration
Vitamin C/Vitamin E 2 cap 04/11/25 20:30 04/11/25 20:39
Vit C/Vit E/Lutein/Min/[place]-3 (Ocuvite) Capsule PO 05/09/25 20:29 2 cap
QPM [place] Administration
--- NOTE | 2025-04-12 09:21 | PTOTSP ---
Speech Therapy Evaluation:
Pt presents with functional oropharyngeal swallow at bedside. No overt s/sx of aspiration across trials. Brain MRI negative, pt passed 3oz swallow screen, WBC WNL, and pt on room air.
Recommend:
1. Continue regular solids and thin liquids
2. Medications as tolerated
3. General aspiration precautions
4. 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
--- NOTE | 2025-04-12 10:09 | W.PN.HOSP.TC ---
Today's Communication/Plan
-
dc after PT/OT
Assessment / Plan
Assessment / Plan
Physical Exam
General: Comfortable and Conversant; No Fever, Chills or Sweats
HEENT: NormoCephalic, Anicteric, Moist mucous membranes, PERRLA, Morse Conjunctivae and No Ptosis
Respiratory: Clear; No Wheezes, Rales or Rhonchi
Cardiac: S1/S2 and Regular Rhythm; No Murmur, Rub, Gallop or Peripheral Edema
GI: Soft, Non Tender, Non Distended, Normal Bowel Sounds
Genito-urinary: no Patel
Musculoskeletal: No Clubbing, No Cyanosis and No Edema
Skin: Warm and Dry; No Rash or Jaundice
Neuro: AO x 3, No Motor Deficits, Nonfocal/grossly intact, Cranial Nerves Intact and No Sensory Deficits; No Slurred Speech, Facial Droop, Tremors or Sedated
Psych: Calm
# abrupt onset of ataxia and dysarthria with resolving symptoms likely due to TIA vs metabolic disturbace
She is feeling back to normal
CT head and neck & MRI , no acute stroke
Seen by neurology with recommendations:
-continue thiamine
-continue aspirin 81 mg daily for 6 months
-LDL 90 with goal <70 continue atorvastatin 40 mg nightly
-follow up with neurology outpatient.
# Leukocytosis, reactive, resolved
No fever or dysuria or cough
# UDS positive benzos, marijuana, tricyclic's
Pt reports taking gummies for sleep, denies drug use.
#Essential HTN
Stable, no headache or chest pain
- Continue amlodipine 5 mg every afternoon
#Former smoker
Quit 40 years ago
#Depression
Mood is pleasant
Continue Prozac 40 mg daily
#chronic neck and back pain with chronic pain syndrome with opioid dependency/ neuropathy on chronic pain meds
History of cervical injections
- Continue Belbuca twice daily
#Diverticulitis in past
Glaucoma
Continue PreserVision
DVT prophylaxis
SCDs
Total discharge time spent to see the patient, examine the patient, review data and lab result, discuss discharge plan with patient, neurology, nursing staff around 65 minutes
Anticipated Discharge: Today
Subjective/Interval History
-
Date of Service: April 12, 2025
Objective Data
-
Labs:
Laboratory Results
04/12/25
06:39
WBC 4.9
Hgb 11.4 L
Hct 33.3 L
Plt Count 247
Sodium 141
Potassium 3.6
Chloride 108 H
Carbon Dioxide 27
BUN 9
Creatinine 0.5 L
Glucose 81
Calcium 8.9
Vital Signs:
Vital Signs
Temp Pulse Resp BP Pulse Ox
98.4 F 83 18 147/83 99
04/12/25 07:00 04/12/25 07:00 04/12/25 07:00 04/12/25 07:00 04/12/25 07:00
[2025-04-12 11:30] VITALS: BP 123/80
--- NOTE | 2025-04-12 11:47 | PTOTSP ---
Patient demonstrates safe and independent mobility, no skilled PT needs at this time.
--- NOTE | 2025-04-12 13:53 | W.DCSUMMARY ---
Discharge Summary
Discharge Data
Date of Admission: 04/11/25
Date of Discharge: 04/12/25
-
Pending Results: No
Hospital Course
5 years old female with a past medical history of hypertension, history of alcohol abuse, chronic pain syndrome, anxiety and depression who presented for evaluation of dysarthria and ataxia. Patient reported that she was in her normal state of
health before bed then woke up and noted that she felt very clumsy and 'drunk.' She felt unsteady on her feet and was dropping things. She noticed that she was having some trouble getting words out. Went to her PCP first and was noted to have
ataxia to ILA and FRANCISCA and referred her to the ER. She reported that symptoms seem to be improving generally. In the ER, head CT showed no acute findings. Head and neck CTA showed negative major branch vessel occlusion, flow-limiting stenosis,
dissection, or aneurysm formation, chronic left-sided paranasal sinusitis. Hgb A1C 4.9, LDL 90, Vitamin B12 591. Patient was evaluated by neurology. The diagnosis was possibility of transient ischemic attack or more likely toxic metabolic
encephalopathy. Neurologist recommended short course of oral thiamine, aspirin 81 mg daily for 6 months with atorvastatin 40 mg daily for preventative measures. Patient was counseled regarding potential side effects and she verbalized
understanding. She remained hemodynamically stable. She was evaluated by physical therapy. Patient was discharged home in a stable condition without skilled needs.
Discharge Plan
-
Patient Disposition: Home (Routine Discharge)
Discharge Diagnosis/Procedures: Abrupt onset of ataxia and dysarthria with normal MRI of brain, normal CTA, unremarkable blood work, abnormal UDS. Possible TIA, more likely toxic metabolic encephalopathy
You were seen by neurology
Recommendations:
continue Thiamine x 7 days for completeness
continue aspirin x 6 months, then discontinue 09/2025
continue Atorvastatin 40 mg daily due to mildly LDL > 70. Potential side effects of atorvastatin include myositis, muscle pain, fatigue, elevated liver enzyme. Follow-up with your primary care doctor and do blood work to monitor potential side
effects.
Diet: As tolerated
Referrals:
Markel Gonzales MD [Active, Neurology] - in one month
Maria Elena Rankin CRNP [Family Provider, Internal Medicine] - in one to two weeks
Prescriptions:
New
atorvastatin 40 mg Tablet
40 mg PO QPM Qty: 30 0RF
aspirin 81 mg Tablet,Chewable
81 mg PO DAILY Qty: 30 0RF
thiamine mononitrate (vit B1) 100 mg Tablet
100 mg PO DAILY Qty: 7 0RF
Continued
buprenorphine HCl [Belbuca] 450 mcg Film
450 mcg BUCCAL Q12H
fluoxetine 40 mg Capsule
80 mg PO QPM
cyanocobalamin (vitamin B-12) 1,000 mcg Tablet
1,000 mcg PO DAILY
amlodipine [Norvasc] 10 mg Tablet
10 mg PO QPM
ibuprofen 400 mg Tablet
400 mg PO Q6HPRN PRN (Reason: mild pain)
gabapentin 300 mg Capsule
600 mg PO HS
PreserVision AREDS 2,148 mcg-113 mg-45 mg-17.4mg Tablet
2 tab PO QPM
Discharge Orders:
Discharge Patient (As Directed); Ordered 04/12/25
Ordered By: Nilesh Mustafa
Discharge Date and Time
Discharge Date/Time: 04/12/25 12:19
Print Language: ARMENIAN
== END 2025-04-12 12:19 | disposition home or self-care (01) ==
LOC: 3 WEST ACU 13:15
PROVIDERS: Clinical Nurse Specialist Family Health; ADMITTING PHYSICIAN Internal Medicine; ATTENDING PHYSICIAN Internal Medicine; CONSULT PHYSICIAN Psychiatry & Neurology Neurology; EMERGENCY PHYSICIAN Emergency Medicine; FAMILY PHYSICIAN Nurse Practitioner
DX: R27.0 Ataxia, unspecified (principal); R47.1 Dysarthria and anarthria; R47.01 Aphasia; I10 Essential (primary) hypertension; F32.A Depression, unspecified; F41.9 Anxiety disorder, unspecified; G89.4 Chronic pain syndrome; M54.2 Cervicalgia; M54.9 Dorsalgia, unspecified; G62.9 Polyneuropathy, unspecified; G47.00 Insomnia, unspecified; H40.9 Unspecified glaucoma; F11.20 Opioid dependence, uncomplicated; Z79.899 Other long term (current) drug therapy; Z87.891 Personal history of nicotine dependence; D64.9 Anemia, unspecified
CPT/HCPCS: 0042T; 70450; 70496; 70498; 70551; 80048; 80053; 80061; 80306; 80307; 82077; 82607; 83036; 84439; 84443; 85025; 92610; 93005; 97161; 99285; G0378; Q9967